=== PATIENT | female | born 1940 | race Two or more races ===

== ENCOUNTER 2017-10-02 17:32 | Emergency (ER) | payer OTHER ==
--- NOTE | 2017-10-02 17:33 | EDPHY ---
H & P Time Seen by Provider: 10/02/17 17:33 HPI/ROS: HPI CHIEF COMPLAINT: Worsening cough times months. However worse over the past 2 weeks HISTORY OF PRESENT ILLNESS: Patient very pleasant 75-year-old female, she presents emergency room with a cough. She reports that she has had a chronic cough for months he has been slightly getting worse since May however the last 2 weeks it has gotten worse. She has a bronchitic sounding cough. Sometimes it is productive with sputum. She describes this clear to greenish sputum. No blood. She denies any chest pain. She does have some posterior throat irritation when she coughs very hard, additionally she denies any shortness of breath or fever. No chills. No night sweats. Denies fatigue. She states she otherwise feels fine over the cough has been getting worse over the past 2 weeks. She has not seen a primary care doctor for this. She decided to come to the emergency room for evaluation for worsening cough for the past 2 weeks. Upon arrival here she appears well nontoxic no acute distress. Vital signs are stable. She is not hypoxic. Afebrile. Blood pressure heart rate stable. Denies any underlying lung disease like COPD or emphysema. Does not smoke. Has a bronchitic sounding cough on exam but no distress. Past Medical History: Thrombocytopenia, osteoporosis, osteoarthritis, hypokalemia takes potassium supplements Past Surgical History: Social History: Denies daily use of drugs alcohol tobacco. Family History: ROS REVIEW OF SYSTEMS: A comprehensive 10 point review of systems is otherwise negative aside from elements mentioned in the history of present illness. Exam Constitutional appears well nontoxic no acute distress triage nursing summary reviewed, vital signs reviewed, awake/alert. Eyes normal conjunctivae and sclera, EOMI, PERRLA. HENT normal inspection, atraumatic, moist mucus membranes, no epistaxis, neck supple/ no meningismus, no raccoon eyes. Respiratory bronchitic sounding cough on exam., no significant wheezing on exam good air movement bilaterally. No crackles or rhonchi. Cardiovascular rate normal, regular rhythm, no murmur, no edema, distal pulses normal. Gastrointestinal soft, non-tender, no rebound, no guarding, normal bowel sounds, no distension, no pulsatile mass. Genitourinary no CVA tenderness. Musculoskeletal no midline vertebral tenderness, full range of motion, no calf swelling, no tenderness of extremities, no meningismus, good pulses, neurovascularly intact. Skin pink, warm, & dry, no rash, skin atraumatic. Neurologic awake, alert and oriented x 3, AAOx3, moves all 4 extremities equally, motor intact, sensory intact, CN II-XII intact, normal cerebellar, normal vision, normal speech. Psychiatric normal mood/affect. Heme/Lymph/Immune no lymphadenopathy. Differential Diagnosis: Includes but is not limited to in a particular order chronic bronchitis, acute bronchitis, viral syndrome, upper respiratory tract infection, viral pneumonia, bacterial pneumonia Medical Decision Making: Plan for this patient will give patient DuoNeb breathing treatment here in emergency room, two view chest x-ray. I offered to do blood work for check a CBC and white count, check her platelets, check her potassium, however she has declined IV establishment or blood draw or blood stick. She would like a breathing treatment chest x-ray. Re-evaluation: 1824: Patient re-evaluate is feeling much better after DuoNeb breathing treatment. Re-examination her lungs good air movement. No longer has that significant bronchitic cough. Chest x-ray two view reviewed. Shows no evidence of pneumonia. Bronchitis present. Prescription provided for albuterol 2 puffs every 4 hr, prednisone, and azithromycin. Patient understands drink lots of fluids stay well-hydrated. Antibiotics as prescribed. Return precautions discussed. Understands if worsening shortness of breath, fever, chest pain. She understands. Source: Patient, Family Constitutional: Initial Vital Signs Temperature (C) 37.6 C 10/02/17 17:40 Heart Rate 95 10/02/17 17:40 Respiratory Rate 22 H 10/02/17 17:40 Blood Pressure 146/72 H 10/02/17 17:40 O2 Sat (%) 94 10/02/17 17:40 O2 Delivery Mode Room Air Allergies/Adverse Reactions: No Known Allergies Allergy (Unverified 10/02/17 17:47) Home Medications: Medication Instructions Recorded Albuterol [Proventil Inhaler HFA 1 - 2 puffs IH Q4H #1 mdi 10/02/17 (*)] Azithromycin [Zithromax] 250 mg PO DAILY #6 tab 10/02/17 Potassium Cl 10/02/17 predniSONE 60 mg PO DAILY #15 tab 10/02/17 Medical Decision Making - Diagnostics Imaging Results: Imaging Impressions Chest X-Ray 10/02/17 17:47 Impression: Airways disease. No pneumonia. - Data Points Medications Given: Discontinued Medications Albuterol/Ipratropium (Duoneb) 3 ml IH EDNOW ONE Stop: 10/02/17 17:48 Last Admin: 10/02/17 17:50 Dose: 3 ml Departure - Departure Disposition: Home, Routine, Self-Care Clinical Impression: Acute bronchitis Qualifiers: Bronchitis organism: other organism Qualified Code(s): J20.8 - Acute bronchitis due to other specified organisms Condition: Good Instructions: Acute Bronchitis (ED) Additional Instructions: 1. Follow up with her primary care doctor. 2. Return emergency room if you have worsening shortness of breath worsening cough fever vomiting or not feeling well. 3. Antibiotics as prescribed, prednisone as prescribed, albuterol 2 puffs every 4 hr as needed for cough wheezing shortness of breath. 4. Recommend [id number] cough medicine. Referrals: Angela Pena MD [Primary Care Provider] - As per Instructions Prescriptions: Albuterol [Proventil Inhaler HFA (*)] 1 - 2 puffs IH Q4H #1 mdi Azithromycin [Zithromax] 250 mg PO DAILY #6 tab predniSONE 60 mg PO DAILY #15 tab
[2017-10-02] MEDS ORDERED: IPRATROPIUM/ALBUTEROL 3 ML DEYVIAL IH ONE (17:47)
[2017-10-02 18:31] VITALS: BP 134/67
== END 2017-10-02 18:30 | disposition home or self-care (01) ==
LOC: EDBD → CED 17:32
DX: J20.8 Acute bronchitis due to other specified organisms (principal)
CPT/HCPCS: 71046-PO

== ENCOUNTER → 2017-10-15 | Outpatient (CLI) | payer OTHER | LOC: EDBD → FIMAGING 08:31 | PROVIDERS: ATTEND Family Medicine | DX: Z12.31 Encounter for screening mammogram for malignant neoplasm of breast (principal); Z13.820 Encounter for screening for osteoporosis; M81.0 Age-related osteoporosis without current pathological fracture ==

== ENCOUNTER → 2017-10-30 | Outpatient (CLI) | payer OTHER | LOC: FIMAGING 09:17 | PROVIDERS: ATTEND Family Medicine | DX: R92.0 Mammographic microcalcification found on diagnostic imaging of breast (principal) ==

== ENCOUNTER 2018-08-13 08:37 | Observation (INO) | payer OTHER ==
[2018-08-13] MEDS ORDERED: ONDANSETRON 4 MG/2 ML VIAL IVP ONE (08:43)
[2018-08-13] MEDS ORDERED: NS 500 ML IV ONE (08:44)
[2018-08-13] MEDS ORDERED: PANTOPRAZOLE SODIUM 40 MG VIAL IVP ONE (09:17)
--- NOTE | 2018-08-13 09:29 | EDPHY ---
H & P Stated Complaint: black stool last pm . 1x induced vomiting. upset stomach. Time Seen by Provider: 08/13/18 08:43 HPI/ROS: This patient presents with black appearing loose stool starting at 1:00 a.m. - 45 episodes and associated nausea with 1 episode self-induced vomiting this morning with coffee-ground appearing emesis per patient. Her recent history is notable for pain from osteoarthritis in her left knee for which she started taking Aleve 2 times a day starting 1 week ago. Her history is also notable for chronic thrombocytopenia with platelet count typically in the 60s. She is brought in by her daughter by private vehicle for evaluation. She denies any lightheadedness or other associated symptoms except for ongoing nausea. She has noticed any significant abdominal pain she does describe slight discomfort in the epigastrium she seems to be describing nausea rather than pain. ROS: Constitutional: She denies any significant fatigue or weakness. No fevers recently. HEENT: She has mild coryza for couple days and had 1 episode of brief epistaxis that resolved with direct pressure this morning prior to arrival. Pulmonary: No dyspnea Or cough. Cardiovascular: No lightheadedness or chest pain. GI: As per HPI. : No symptoms Integumentary: No pallor, diaphoresis or rash Hematological: No easy bruising recently. No hematuria 10 point review of symptoms is performed and otherwise negative with exception of pertinent positives and negatives listed in HPI and ROS Source: Patient Exam Limitations: No limitations - Personal History Current Tetanus/Diphtheria Vaccine: Unsure Current Tetanus Diphtheria and Acellular Pertussis (TDAP): Unsure - Medical/Surgical History PMH: Osteoarthritis of left knee with chronic knee pain Recent NSAID use due to above Chronic idiopathic thrombocytopenia with platelet count typical early in the 60s Positive H pylori treated with antibiotics on previous endoscopy per patient Other PMH: osteoarthrtis. low platelets. hyster - Family History Significant Family History: No pertinent family hx - Social History Smoking Status: Former smoker Alcohol Use: Occasionally Drug Use: None - Physical Exam Exam: General Appearance: Alert, no distress. Eyes: Pupils equal and round no pallor or injection. ENT, Mouth: Mucous membranes moist. Respiratory: There are no retractions, lungs are clear to auscultation. Cardiovascular: Regular rate and rhythm. Gastrointestinal: Abdomen is soft and nontender, no masses, bowel sounds normal. Rectal exam: Positive external hemorrhoids not appear to be bleeding. Small amount of dark stool flecks that appears consistent with melena heme-positive on Hemoccult testing Neurological: GCS 15 Skin: Warm and dry, no rashes. Musculoskeletal: Neck is supple nontender. Extremities are symmetrical, full range of motion. Psychiatric: Mood and affect normal DIFFERENTIAL DIAGNOSIS: After history and physical exam differential diagnosis was considered for NSAID induced ulcer or gastritis, H pylori induced ulcer, Pepto-Bismol affect/iron supplement effect on color of stool with heme positive from hemorrhoid, Constitutional: Initial Vital Signs Temperature (C) 36.9 C 08/13/18 08:43 Heart Rate 99 08/13/18 08:43 Respiratory Rate 16 08/13/18 08:43 Blood Pressure 137/91 H 08/13/18 08:43 O2 Sat (%) 95 08/13/18 08:43 O2 Delivery Mode Room Air Allergies/Adverse Reactions: No Known Allergies Allergy (Verified 08/13/18 08:48) Home Medications: Medication Instructions Recorded Potassium Cl 10/02/17 Calcium Citrate 08/13/18 Vitamin B-12 08/13/18 Medical Decision Making - Diagnostics EKG Interpretation: 12 lead EKG performed at 9:47 a.m. -indication nausea, Reveals sinus rhythm at 85 Intervals: Normal throughout [place]: Normal throughout ST segments: Normal throughout Overall assessment: Normal EKG ED Course/Re-evaluation: IV normal saline bolus Protonix 80 mg IV after positive rectal exam I counseled patient regarding plan for admission and she is in agreement with this plan explaining my concern for potential NSAID induced ulcer. I spoke with Purvi mid-level practitioner with hospitalist group at [facility] and she accepts admission to Dr. Gaming to [facility] bed for this stable GI bleed. At 9:30 a.m. There are no [facility] beds available currently [facility] pending discharges. I spoke with Dr. Viramontes, GI specialist on-call. She agrees with plan requests that we keep the patient NPO A review of labs reveals normal white count and H&H with low platelets consistent with her baseline, today platelet count 67. BNP also normal exception of slightly elevated BUN at 31. Her Hemoccult card was positive for blood The patient remained hemodynamically stable for the duration of her ED course awaiting a bed and at noon her initially borderline tachycardia had resolved to the 80s and she is comfortable resting here with imminent transfer. Patient and her granddaughter declined EMS transport understand the risks of traveling by private vehicle in at the accept these risks. Discussion: Stable GI bleed as evidenced by melena and history of coffee- ground appearing emesis with normal H&H here, stable vitals after small fluid bolus. I suspect NSAID gastritis or ulcer as cause of her bleed given recent history of NSAID usage. Patient also has a history of treated H pylori in the past that was tx'd with standard medical tx. She is NPO with plan for admission to a med bed with Dr. Gaming and GI consult with . - Data Points Laboratory Results: 08/13/18 08:57 POC Sodium 145 mEq/L mEq/L (135-145) POC Potassium 4.0 mEq/L mEq/L (3.3-5.0) POC Chloride 113.0 mEq/L H mEq/L (97-110) POC Total CO2 23 mEq/L mEq/L (22-31) POC BUN 31 mg/dL H mg/dL (7-23) POC Creatinine 0.4 mg/dL L mg/dL (0.6-1.0) POC Glucose 112 mg/dL H mg/dL (70-100) POC Calcium 9.8 mg/dL mg/dL (8.5-10.4) Medications Given: Discontinued Medications Sodium Chloride (Ns) 500 mls @ 0 mls/hr IV ONCE ONE; Wide Open PRN Reason: Protocol Stop: 08/13/18 08:45 Last Admin: 08/13/18 08:55 Dose: 500 mls Ondansetron HCl (Zofran) 4 mg IVP EDNOW ONE Stop: 08/13/18 08:44 Last Admin: 08/13/18 08:56 Dose: 4 mg Pantoprazole Sodium (Protonix) 80 mg IVP EDNOW ONE Stop: 08/13/18 09:18 Last Admin: 08/13/18 09:22 Dose: 80 mg Point of Care Test Results: CBC CBC Collection Date 08/13/18 CBC Collection Time 08:55 WBC 5.24 RBC 4.47 HGB 14.9 HCT 44.1 PLT 67 Neut # 3.89 Neut 74.2 LYMPH # 1.04 LYMPH 19.8 MCV 98.7 Chemistry 08/13/18 08:57 POC Sodium 145 mEq/L mEq/L (135-145) POC Potassium 4.0 mEq/L mEq/L (3.3-5.0) POC Chloride 113.0 mEq/L H mEq/L (97-110) POC Total CO2 23 mEq/L mEq/L (22-31) POC BUN 31 mg/dL H mg/dL (7-23) POC Creatinine 0.4 mg/dL L mg/dL (0.6-1.0) POC Glucose 112 mg/dL H mg/dL (70-100) POC Calcium 9.8 mg/dL mg/dL (8.5-10.4) Occult Blood Occult Blood Collection Date 08/13/18 Occult Blood Collection Time 09:10 Occult Blood Result Positive/Positive Departure - Departure Disposition: [facility] Inpatient Acute Clinical Impression: Gastrointestinal hemorrhage with melena Condition: Fair
[2018-08-13] MEDS ORDERED: ACETAMINOPHEN 325 MG TAB PO PRN (13:59)
[2018-08-13] MEDS ORDERED: ONDANSETRON DISINTEGRATING 4 MG TAB PO PRN (13:59)
[2018-08-13] MEDS ORDERED: ONDANSETRON 4 MG/2 ML VIAL IVP PRN (13:59)
[2018-08-13] MEDS ORDERED: NS 1,000 ML IV SCH (14:00)
[2018-08-13] MEDS: D5W NS 1,000 ML IV SCH ×2 (14:07→22:37)
--- NOTE | 2018-08-13 14:16 | GCON ---
[f rep st] CONSULTATION DATE OF CONSULTATION: 08/13/2018 CHIEF COMPLAINT: Melena. HISTORY OF PRESENT ILLNESS: I am asked to see this patient consultation by Dr. Gaming for a chief c omplaint of melena. The patient is a 77-year-old, who does have history of H pylori treated in 2011. She did have stool antigen checked in 2012 that was negative, confirming eradication. She had been taking some extra Aleve recently for joint pain and then last night did not feel well, at 1 a.m. wok e up and pass melenic stools. She did some self-induced vomiting, noting coffee-grounds emesis. She has no prior history of peptic ulcer disease or GI bleeding. She has a remote history of GERD that has not been a problem lately. No dysphagia. No alcohol use. ALLERGIES: No reported allergies. HOME MEDICATIONS: Include vitamin B12, potassium, and calcium. PAST MEDICAL HISTORY: Notable for osteoarthritis and a history of H pylori treated and eradicated. She has chronic idiopathic thrombocytopenia; platelets generally run around 60,000. She has divertic ulosis and a personal history of colon polyps. Last colonoscopy was in October 2017. FAMILY HISTORY: No family history for colon cancer. SOCIAL HISTORY: Denies alcohol use. REVIEW OF SYSTEMS: I have performed a complete review of systems, which is negative except for the p ertinent positives and negatives noted above in the HPI. PHYSICAL EXAM: VITAL SIGNS: Afebrile at 36.9, blood pressure 118/66, and pulse 86. CONSTITUTIONAL: Alert and oriented. EYES: No scleral icterus. ENT: No oral lesions. CARDIOVASCULAR: Regular r hythm. CHEST: Clear to auscultation. ABDOMEN: Soft. Mild tenderness to deep palpation in the epi gastric area. No rebound. NEUROLOGIC: Nonfocal. SKIN: No lesions. LABORATORY DATA: BUN of 31 and creatinine of 0.4. However, I have no other lab data including no CB C or pro time, although the report from the emergency room physician at [facility] told me that hematocrit w as normal and platelets were around 60,000, but I cannot confirm. ASSESSMENT: Gastrointestinal bleed, most consistent with upper gastrointestinal bleed given her alexandrea temesis. Suspect probably nonsteroidal antiinflammatory drug-induced injury. Differential diagnosis would also include Marisol-Odell, arteriovenous malformation, esophagitis, etc. Overall, the patien t would be high risk for endoscopic procedure because of her thrombocytopenia and may be more difficu lt to treat endoscopically. The patient has had some issues with sedation, previously unable to tole rate much sedation. As she will need to be still for any therapeutic maneuvers, would recommend that this be done with anesthesia. PLAN: 1. We will check a CBC now and pro time, and then recommend follow hemoglobin and hematocrit. 2. Recommend PPI. 3. We will arrange for upper endoscopy with anesthesia. This will likely be done in the morning. H owever, if there is evidence of more serious bleeding tonight, then we can do emergently. Thank you for this consultation. /[id number]/MODL
--- NOTE | 2018-08-13 14:41 | GHP ---
[f rep st] HISTORY AND PHYSICAL DATE OF ADMISSION: 08/13/2018 CHIEF COMPLAINT: Melena. HISTORY OF PRESENT ILLNESS: This is a 77-year-old female who started taking Aleve recently for osteo arthritis. She felt nauseous last night, went to the bathroom. It was very liquidy. She thought it was going to be blood; however, it was entirely black. She also had an episode of quite black emesi s. She is not feeling dizzy, lightheaded. She is not having any chest pain or shortness of breath. She had an upper endoscopy about 7 years ago at which time she was told she had H pylori. She is un clear of the exact endoscopic findings, however. PAST MEDICAL/SURGICAL HISTORY: 1. Osteoarthritis. 2. Thrombocytopenia, followed by Dr. Jones. She is unclear exactly what the cause is. 3. Bartholin cyst removal. MEDICATIONS: Please see medication reconciliation. ALLERGIES: No known drug allergies. FAMILY HISTORY: Reviewed and noncontributory. SOCIAL HISTORY: She does not drink or smoke. REVIEW OF SYSTEMS: 10-point review of systems is conducted and is negative except per HPI. PHYSICAL EXAM: VITAL SIGNS: Blood pressure 105/66, heart rate 83, respiration rate 16, saturating 9 5% on room air, temperature 37.1. GENERAL: Ms. Delarosa is a pleasant female who is resting comfo rtably in no acute distress. HEENT: Shows her to be normocephalic, atraumatic. CARDIOVASCULAR: Sh ows a regular rate and rhythm. No murmurs, rubs, or gallops. PULMONARY: Lungs clear to auscultatio n bilaterally. ABDOMEN: Soft, nontender, nondistended. SKIN: Shows no rash. : No Gipson. NEUR OLOGIC: Shows her to be alert and oriented x3. She is moving all extremities. PSYCHIATRIC: Shows normal mood and affect. LABORATORY DATA: Notable for a BUN of 31, creatinine of 0.4. We do not have a CBC. DATA: 1. I reviewed her chart including Dr. Irby's note. 2. I personally viewed and interpreted her EKG. This shows sinus rhythm. There are no acute ischem ic changes. IMPRESSION AND PLAN: 1. Upper gastrointestinal bleed: History and lab findings of elevated BUN with normal creatinine ar e consistent. We do not have a hemoglobin yet, this has been ordered. Dr. Viramontes has been consul mandeep and plans an upper endoscopy tomorrow. Will place her on intravenous Protonix, cycle her hemoglo bins. Will transfuse for hemoglobin below 8. If her platelets are above 50 I do not think she needs a platelet transfusion at this point unless she develops a massive bleed. She is hemodynamically st able. 2. Osteoarthritis: She should not take any more Aleve. 3. Thrombocytopenia: We are still waiting on her CBC. It is unclear exactly what the etiology is b ased on her history. /[id number]/MODL
[2018-08-13 14:56] LABS: INR 1.34 (0.83-1.16)
[2018-08-13] MEDS: PANTOPRAZOLE SODIUM 40 MG VIAL IVP SCH (21:00)
[2018-08-14] MEDS: PANTOPRAZOLE SODIUM 40 MG VIAL IVP SCH ×4 (01:14→23:26)
[2018-08-14] MEDS: D5W NS 1,000 ML IV SCH (06:19)
[2018-08-14] MEDS ORDERED: LR 1,000 ML IV ONE (09:06)
--- NOTE | 2018-08-14 09:47 | PDANEPAE ---
ANE History of Present Illness gi bleed ANE Past Medical History - Cardiovascular History Hx Hypertension: No Hx Arrhythmias: No Hx Chest Pain: No Hx Coronary Artery / Peripheral Vascular Disease: No Hx CHF / Valvular Disease: No Hx Palpitations: No - Pulmonary History Hx COPD: No Hx Asthma/Reactive Airway Disease: No Hx Recent Upper Respiratory Infection: No Hx Oxygen in Use at Home: No Hx Sleep Apnea: No Sleep Apnea Screening Result - Last Documented: Negative - Endocrine History Hx Diabetes: No Hypothyroid: No Hyperthyroid: No Obesity: no - Renal History Hx Renal Disorders: No - GI History GERD: mild Hx Gastrointestinal Disorders: Yes Gastrointestinal History Comment: + GI bleed s/p 1 week NSAID use for knee pain - Other Health History Other Health History: + thrombocytopenia - Chronic Pain History Chronic Pain: No ANE Review of Systems Review of systems is: negative Review of Systems: - Exercise capacity Exercise capacity: >=4 METS ANE Patient History - Allergies Allergies/Adverse Reactions: No Known Allergies Allergy (Verified 08/13/18 08:48) - Home Medications Home medications: home medication list seen and reviewed Home Medications: Potassium Cl [Klor-Con 20 meq (*)] 20 meq PO DAILY 10/02/17 [Last Taken 08/11/18 ] Calcium Citrate/Vitamin D3 [Calcium Citrate - Vit D Caplet] 1 each PO DAILY [Last Taken 08/11/18] Cyanocobalamin (Vitamin B-12) [Vitamin B-12] 1,000 mcg PO DAILY 08/13/18 [Last Taken 08/11/18] Meloxicam 7.5 mg PO BID PRN 08/13/18 [Last Taken Unknown] - NPO status NPO Status: no food or drink >8 hours NPO Since - Liquids (Date): 08/13/18 NPO Since - Liquids (Time): 21:00 NPO Since - Solids (Date): 08/13/18 NPO Since - Solids (Time): 21:00 - Anes Hx Anes Hx: no prior problems - Smoking Hx Smoking Status: Former smoker - Alcohol Use Alcohol Use: Occasionally ANE Labs/Vital Signs - Labs Result Diagrams: 08/14/18 06:00 - Vital Signs Vital Signs: reviewed preoperatively; see RN documention for details Blood Pressure: 112/63 Heart Rate: 73 Respiratory Rate: 16 O2 Sat (%): 95 Height: 147.32 cm Weight: 51.71 kg ANE Physical Exam - Airway Neck exam: FROM Mallampati Score: Class 2 Mouth exam: dentures - Pulmonary Pulmonary: no respiratory distress, clear to auscultation - Cardiovascular Cardiovascular: regular rate and rhythym - ASA Status ASA Status: II ANE Anesthesia Plan Anesthesia Plan: GA with mask
[2018-08-14] MEDS ORDERED: PROPOFOL/EMULSION 500 MG/50 ML BOTTLE IV ONE (09:50)
--- NOTE | 2018-08-14 09:52 | PDGENHP ---
History & Physical Chief Complaint: melena History of Present Illness: using NSAIDS Pertinent Past, Social, Family History: low PLT Relevant Physical Exam: CV [id number] nl. chest CTA. Abd + bs soft Cardiorespiratory Assessment: [id number]
--- NOTE | 2018-08-14 10:09 | GIREPORT ---
[facility] Surgical Services - Endoscopy Department Patient Name: Tracy Delarosa Procedure Date: 08/14/2018 9:01 AM Patient Type: Inpatient Attending MD/ ER Physician: Sneha Viramontes MD Procedure: Upper GI endoscopy Indications: Hematemesis, Melena Providers: Sneha Viramontes MD Medicines: Monitored Anesthesia Care Complications: No immediate complications. Description of Procedure: After obtaining informed consent, the endoscope was passed under direct vision. Throughout the procedure, the patient's blood pressure, pulse, and oxygen saturations were monitored continuously. The Endoscope was intro duced through the mouth, and advanced to the second part of duodenum. The [facility] er GI endoscopy was accomplished without difficulty. The patient tolerated th e procedure well. Findings: Grade I varices were found in the lower third of the esophagus. They we re small in size. LA Grade B (one or more mucosal breaks greater than 5 mm, not extending between the tops of two mucosal folds) esophagitis with no bleeding was found at the gastroesophageal junction. Moderate inflammation characterized by congestion (edema), erythema and granularity was found in the entire examined stomach. Biopsies were sandra en with a cold forceps for histology. Estimated blood loss was minimal. One non-bleeding superficial duodenal ulcer with no stigmata of bleedin g was found in the duodenal bulb. The lesion was 3 mm in largest dimension. Estimated Blood Loss: Estimated blood loss was minimal. Post Op Diagnosis: - Grade I-II esophageal varices, no stigmata. Query if thrombocytopenia is related to underlying liver diease. - Gastritis. Biopsied. - One non-bleeding duodenal ulcer with no stigmata of bleeding. - No old blood or active bleeding. Recommendation: - Await pathology results. - Clear liquid diet. - Return patient to [facility] for ongoing care. - Check LFT today. - Perform a RUQ ultrasound with doppler flow today. - Return patient to [facility] for ongoing care. - PPI PO once taking PO well. - No NSAIDS. - Thank you for allowing me to participate in the care of your patient. Attending Participation: I personally performed the entire procedure. Sneha Viramontes MD Sneha Viramontes MD 08/14/2018 10:08:57 AM This report has been signed electronicallySneha Viramontes MD Number of Addenda: 0 Note Initiated On: 08/14/2018 9:01 AM [email or web address]
[2018-08-14] MEDS ORDERED: NALOXONE HCL 0.4 MG/ML INJ IVP PRN (10:22)
--- NOTE | 2018-08-14 10:22 | POSTANESTH ---
Post Anesthetic Evaluation Cardiovascular Status: Normal, Stable Respiratory Status: Normal, Stable Level of Consciousness/Mental Status: Can Participate in Eval Pain Control: Adequate, Prn Tx Ordered Nausea/Vomiting Control: Adequate, Prn Tx Ordered Complications Possibly Related to Anesthesia: None Noted
--- NOTE | 2018-08-14 10:58 | ASMTCMCOM ---
CM Note CM Note Notes: Pt is a 77 y/o female admitted for melena. Pt will most likely d/c independent when medically stable. No therapies ordered at this time. CM available for changes. Plan: Independent Date Signed: 08/14/2018 10:58 AM Electronically Signed By:EDUARDO Akhtar
[2018-08-14] MEDS: POTASSIUM CL 20 MEQ TAB PO SCH (12:28)
[2018-08-14] MEDS: CALCIUM CARB W/VIT D 500 MG TAB PO SCH (12:28)
[2018-08-14] MEDS: CYANO/VITAMIN B12 1000 MCG TAB PO SCH (12:29)
[2018-08-14] MEDS ORDERED: PNEUMOC 13-VAL CONJ-DIP CRM/PF 0.5 ML SYR (PREVNAR 13) IM ONE (12:54)
--- NOTE | 2018-08-14 13:11 | HOSPPROG ---
Hospitalist Progress Note Assessment/Plan: 77 yo F w UGIB and incidental cirrhosis UGIB: three potential sources- gastritis, esophageal varices, DU bleeding appears to have stopped q6 ppi repeat hct in AM ABLA: yes cirrhosis: serologic workup and u/s no ascites or edema on exam so hold on diuretics proph: scd dispo: inpt Subjective: case d/w dr cedeno. no further bleeding Objective: Vital Signs Temp Pulse Resp BP Pulse Ox 36.7 C 71 16 111/55 L 94 08/14/18 11:27 08/14/18 11:27 08/14/18 11:27 08/14/18 11:27 08/14/18 11:27 Laboratory Results 08/14/18 11:34 08/14/18 11:34 08/13/18 08/14/18 08/15/18 05:59 05:59 05:59 Intake Total 2580 800 Balance 2580 800 PT 16.0 SEC (12.0-15.0) H 08/13/18 14:37 INR 1.34 (0.83-1.16) H 08/13/18 14:37 - Physical Exam Constitutional: no apparent distress, appears nourished Eyes: PERRL, anicteric sclera Ears, Nose, Mouth, Throat: moist mucous membranes, hearing normal Cardiovascular: regular rate and rhythym, no murmur, rub, or gallop Respiratory: no respiratory distress, no rales or rhonchi Gastrointestinal: normoactive bowel sounds, soft, non-tender abdomen, No ascites Genitourinary: no bladder fullness, No borrego in urethra Skin: warm, normal color Musculoskeletal: full muscle strength Neurologic: AAOx3 Psychiatric: interacting appropriately Lymph, Heme, Immunologic: no cervical LAD ICD10 Worksheet Patient Problems: Problems Problem Status Onset Gastrointestinal hemorrhage with melena Acute
[2018-08-14 16:16] LABS: HEPATITIS A ANTIBODY IGM (BCH) NEGATIVE (NEGATIVE); HEPATITIS B CORE AB IGM NEGATIVE (NEGATIVE); HEPATITIS B SURFACE ANTIGEN NEGATIVE (NEGATIVE)
[2018-08-14 16:27] LABS: HEPATITIS C ANTIBODY TOTAL NEGATIVE (NEGATIVE)
[2018-08-15 04:50] LABS: PLATELET COUNT 50 10^3/uL (150-400)
[2018-08-15] MEDS: PANTOPRAZOLE SODIUM 40 MG VIAL IVP SCH ×2 (06:01→11:59)
[2018-08-15] MEDS: POTASSIUM CL 20 MEQ TAB PO SCH (07:57)
[2018-08-15] MEDS: CALCIUM CARB W/VIT D 500 MG TAB PO SCH (07:58)
[2018-08-15] MEDS: CYANO/VITAMIN B12 1000 MCG TAB PO SCH (07:58)
--- NOTE | 2018-08-15 10:23 | SOAPPROG ---
SOAP Progress Note Assessment/Plan: Assessment: UGIB suspect from DU which has now stopped H+H stable no e/o rebleeding EV with likely underlying liver disease serologies sent Small amount of ascites, given recent GIB rec antibiotics for 5 days Plan:OK to advance diet PPI PO daily for 12 weeks Await biopsy for h. pylori and serology w/u for liver disease Cipro 500 BID for 5 days OK to d/c from GI standpoint Follow up with motel maid as outpatient Will sign off for now. 08/15/18 10:20 Subjective: CC melena Pt with some melena but over feels much better Objective: Vital Signs Temp Pulse Resp BP Pulse Ox 36.8 C 80 16 113/67 95 08/15/18 08:12 08/15/18 08:12 08/15/18 08:12 08/15/18 08:12 08/15/18 08:12 Laboratory Results 08/15/18 04:25 08/15/18 04:25 08/14/18 08/15/18 08/16/18 05:59 05:59 05:59 Intake Total 2580 1300 Output Total 900 Balance 2580 400 PT 16.0 SEC (12.0-15.0) H 08/13/18 14:37 INR 1.34 (0.83-1.16) H 08/13/18 14:37 Physical Exam - Physical Exam General Appearance: alert Respiratory: lungs clear Cardiac/Chest: regular rate, rhythm Abdomen: non-tender, soft ICD10 Worksheet Patient Problems: Problems Problem Status Onset Gastrointestinal hemorrhage with melena Acute
[2018-08-15 12:29] VITALS: BP 111/50
--- NOTE | 2018-08-15 13:48 | HOSPPROG ---
Hospitalist Progress Note Assessment/Plan: 77 yo F w UGIB and incidental cirrhosis UGIB: three potential sources- gastritis, esophageal varices, DU bleeding appears to have stopped q6 ppi repeat hct in AM ABLA: yes cirrhosis: serologic workup and u/s no ascites or edema on exam so hold on diuretics proph: scd dispo: home today > 30 minutes Subjective: no melena. ready to go home Objective: Vital Signs Temp Pulse Resp BP Pulse Ox 36.8 C 77 16 111/50 L 90 L 08/15/18 12:27 08/15/18 12:27 08/15/18 12:27 08/15/18 12:27 08/15/18 12:27 Laboratory Results 08/15/18 04:25 08/15/18 04:25 08/14/18 08/15/18 08/16/18 05:59 05:59 05:59 Intake Total 2580 1300 Output Total 900 Balance 2580 400 PT 16.0 SEC (12.0-15.0) H 08/13/18 14:37 INR 1.34 (0.83-1.16) H 08/13/18 14:37 - Physical Exam Constitutional: no apparent distress, appears nourished Eyes: PERRL, anicteric sclera Ears, Nose, Mouth, Throat: moist mucous membranes, hearing normal Cardiovascular: regular rate and rhythym, no murmur, rub, or gallop Respiratory: no respiratory distress, no rales or rhonchi Gastrointestinal: normoactive bowel sounds, soft, non-tender abdomen Genitourinary: No borrego in urethra Skin: warm, normal color Musculoskeletal: full muscle strength Neurologic: AAOx3 Psychiatric: interacting appropriately ICD10 Worksheet Patient Problems: Problems Problem Status Onset Gastrointestinal hemorrhage with melena Acute
--- NOTE | 2018-08-15 14:07 | GDS ---
[f rep st] DISCHARGE SUMMARY DISCHARGE DIAGNOSES: Upper gastrointestinal bleed, acute blood-loss anemia, incidentally discovered cirrhosis of uncertain etiology. Please see admission history and physical by Dr. Derrick Gaming. The patient presented to the [facility] department with nausea and melena. She underwent an upper endoscopy revealing varices in her e sophagus, gastritis, and a nonbleeding duodenal ulcer. There were no interventions. Ultrasound reve aled cirrhosis with no ascites. The patient did not have edema. She had no evidence of further bloo d loss, is discharged home with outpatient followup with Hepatology. Hepatitis serologies were negat po. She did not have acute hepatitis. She is discharged home on Cipro for SBP prophylaxis and a pr oton pump inhibitor. /[id number]/MODL
== END 2018-08-15 14:42 | disposition home or self-care (01) ==
LOC: CED 08:37 → INTOOBSV 09:29 → CEDHOLD 09:29 → F3E 13:14
PROVIDERS: ADMIT Student in an Organized Health Care Education/Training Program; ATTEND Internal Medicine
PROC: 0DB68ZX Excision of Stomach, Via Natural or Artificial Opening Endoscopic, Diagnostic (ICD-10-PCS; principal; 2018-08-13)
DX: K92.2 Gastrointestinal hemorrhage, unspecified (principal); D62 Acute posthemorrhagic anemia; K74.60 Unspecified cirrhosis of liver; I85.00 Esophageal varices without bleeding; K29.70 Gastritis, unspecified, without bleeding; K26.9 Duodenal ulcer, unspecified as acute or chronic, without hemorrhage or perforation; M17.12 Unilateral primary osteoarthritis, left knee; D69.3 Immune thrombocytopenic purpura; Z23 Encounter for immunization
CPT/HCPCS: 43239; 76705; 90670; 93975; 96361; 96374; 96375; 99285; G0009; G0378; J2405; J2704; 80048-ER; 82390-90; 85025-QW-ER; 86255-90; G0472